=== PATIENT | female | born 1965 | race Caucasian/White ===

== ENCOUNTER → 2016-09-18 | Outpatient (CLI) | payer OTHER ==
--- NOTE | 2016-09-18 17:06 | DX ---
PA and Lateral Chest History: Atypical chest pain in a 50-year-old female; no previous studies are available for compariso n. Findings: The heart and mediastinum are normal. Pulmonary vascularity is normal. The lungs are clear. There is mild elevation of the anterior aspect of the right hemidiaphragm. There is no pleural fluid . A pneumothorax is not identified. Impression: No significant radiographic abnormality. Specifically, a source for chest pain is not davide ntified. A preliminary report was called to the patient's healthcare provider at 1900 hours
== END ==
LOC: BMCIMAGING 16:05
PROVIDERS: ATTEND Nurse Practitioner Adult Health
DX: R07.89 Other chest pain (principal)